=== PATIENT | female | born 1935 | race Native Hawaiian/Other Pacific Islander ===

== ENCOUNTER 2017-02-17 23:26 | Inpatient (IN) | payer MEDICARE, OTHER ==
[2017-02-17 23:27] VITALS: BMI 22.8
[2017-02-17] MEDS ORDERED: Oxycodone/Acetaminophen 5/325 mg Tab PO STA (23:59)
--- NOTE | 2017-02-18 00:09 | ED PDOC ---
Arrival/HPI - General Chief Complaint: Trauma Time Seen by Provider: 02/17/17 23:48 - History of Present Illness Narrative History of Present Illness (Text): 02/18/17 00:04 81 yo female in the ER with L. hip, knee, and hand pain after a mechanical fall at home. denies LOC. Pain worst with movement, better with rest. No change in mental status. No other complaints. Past Medical History - Provider Review Nursing Documentation Reviewed: Yes - Infectious Disease Hx of Infectious Diseases: None - Reproductive Menopause: Yes - Cardiac Hx RI: Yes - Psychiatric Hx Substance Use: No - Surgical History Hx Coronary Stent: Yes (x 2) - Anesthesia Hx Anesthesia: Yes Hx Anesthesia Reactions: No Hx Malignant Hyperthermia: No Family/Social History Family/Social History: No Known Family HX Smoking Status: Never Smoked Hx Alcohol Use: No Hx Substance Use: No Allergies/Home Meds Allergies/Adverse Reactions: Allergies No Known Allergies Allergy (Verified 02/17/17 23:42) Home Medications: Home Meds Medication Instructions Recorded Confirmed Clopidogrel [Plavix] 75 mg PO DAILY 02/17/17 02/17/17 Furosemide [Lasix] 40 mg PO DAILY 02/17/17 02/18/17 Allopurinol [Zyloprim] 100 mg PO DAILY 02/18/17 02/18/17 Aspirin [Aspirin Chewable] 81 mg PO DAILY 02/18/17 02/18/17 Colchicine [Colcrys] 0.6 mg PO DAILY 02/18/17 02/18/17 Gabapentin [Neurontin] 300 mg PO TID 02/18/17 02/18/17 Losartan [Cozaar] 100 mg PO DAILY 02/18/17 02/18/17 Potassium Chloride [Klor-Con 10 meq PO DAILY 02/18/17 02/18/17 Sprinkle] Simvastatin [Zocor] 40 mg PO DAILY 02/18/17 02/18/17 Physical Exam - Physical Exam Narrative Physical Exam (Text): - Review of Systems Constitutional: Normal. absent: Fatigue, Weight Change, Fevers Eyes: Normal ENT: denies sore throat, denies tristhmus Respiratory: Normal. absent: SOB, Cough, Sputum Cardiovascular: absent: Chest Pain, Palpitations, Syncope Gastrointestinal: Normal. absent: Abdominal Pain, Diarrhea, Nausea, Vomiting Genitourinary: Normal. absent: Dysuria, Frequency, Hematuria, vaginal bleeding Musculoskeletal: Fall. absent: Back Pain, Neck Pain Skin: Laceration. no rashes, no erythema Neurological: absent: Focal Weakness Endocrine: Normal Hemo/Lymphatic: Normal Psychiatric: No suicidal or homicidal ideations Physical exam Patient appears age appropriate in no distress, speaking full sentences without difficulty Head atraumatic. No nasal bone deformity or tenderness, no facial or jaw pain/ swelling. No neck midline tenderness, thoracic and lumbar spine with no midline tenderness. Pt moving b/l upper and right lower extremities without difficulty, 5/5 strength, with full active and passive ROM. Left ankle unremarkable. Left knee and left hip with tenderness to palpation and limited range of motion due to pain, no visible palpable deformity. Distal neurovasc fully intact. Abd soft/ nt/ng, no hematomas, no peritoneal signs. Neg. pelvic rock. - Systems Exam Head: Present: Atraumatic, Normocephalic Pupils: Present: PERRL Extroacular Muscles: Present: EOMI Conjunctiva: Present: Normal Mouth: Present: Moist Mucous Membranes Neck: Present: Normal Range of Motion. No: MIDLINE TENDERNESS, Paraspinal Tenderness Respiratory/Chest: Present: Clear to Auscultation, Good Air Exchange. No: Respiratory Distress, Accessory Muscle Use, Tachypneic Cardiovascular: Present: Regular Rate and Rhythm, Normal S1, S2, Peripheal Pulses Present. No: Murmurs Abdomen: Present: Normal Bowel Sounds. No: Tenderness, Distention, Peritoneal Signs, Rebound, Guarding Back: Present: Normal Inspection. No: Midline Tenderness, Paraspinal Tenderness Upper Extremity: Left hand with 2 cm laceration, not actively bleeding. Located at second MCP, dorsal. No: Cyanosis, Edema Lower Extremity: Present: Distal neurovascular fully intact. No: Edema Neurological: Present: GCS=15, Speech Normal, cranial nerves II through XII fully intact with no cerebellar abnormality, neurosensory fully intact. No focal neurological deficits. Skin: Present: Warm, Dry, Normal Color. No: Rashes Lymphatic: Present: OX3, NI, NC Psychiatric: Present: Alert, Oriented x 3, Normal Insight, Normal Concentration Vital Signs Reviewed: Yes Vital Signs Temp Pulse Resp BP Pulse Ox 02/18/17 03:23 79 19 123/75 99 02/18/17 02:45 97.8 F 72 20 129/45 L 98 02/18/17 01:46 98.2 F 71 18 118/59 L 98 02/17/17 23:29 98.8 F Medical Decision Making ED Course and Treatment: 02/18/17 00:09 81yo female in the ER after a mechanical fall. Patient has a hand laceration on examination, along with left hip, knee, hand pain. X-rays ordered CAT scan head pending Will give pain medication along with tetanus 02/18/17 02:21 Hip X-ray shows left intertrochanteric comminuted fracture. Ordered labs and pain medications. Other X-rays negative for acute fracture or dislocation. Will be admitted to 's service for orthopedic evaluation. 02/18/17 02:30 Informed patient and family about X-ray findings. Case discussed with who accepts patient under her service with Dr. Schmitt, and Dr. Bourne on consult. 02/18/17 02:32 CT Head results, as read by [facility]: IMPRESSION: Mild increased density in high left frontal scalp possibly mild scalp contusion. No acute intracranial abnormality. 02/18/17 02:44 EKG interpreted by me: NSR @ [address]-segment elevations, normal intervals. - RAD Interpretation Narrative RAD Interpretations (Text): EXAM: CT Head Without Intravenous Contrast. FINDINGS: Brain: Inferior margin of right temporal lobe not included in its entirety. Volume loss. No acute hemorrhage. No acute infarct. Bilateral globus pallidus calcification. Ventricles: No hydrocephalus. Bones/joints: Unremarkable. No acute fracture. Soft tissues: Mild increased density in the high left frontal scalp. Vasculature: Calcification in the wall the distal internal carotid and vertebral arteries. Sinuses: Unremarkable as visualized. No acute sinusitis. Mastoid air cells: Unremarkable as visualized. No mastoid effusion. IMPRESSION: Mild increased density in high left frontal scalp possibly mild scalp contusion. No acute intracranial abnormality. Radiology Orders: 02/17/17 23:59 HEAD W/O CONTRAST [CT] Stat HAND LEFT 3 VIEWS ROUTINE [RAD] Stat HIP MIN 2V W/ PELVIS ALCON [RAD] Stat WRIST, LEFT 3 VIEWS [RAD] Stat 02/18/17 00:18 KNEE WITH PATELLA LEFT 3 VIEW [RAD] Stat 02/18/17 02:18 CHEST PORTABLE [RAD] Stat Market Development Specialist: Radiologist - Medication Orders Current Medication Orders: Morphine Sulfate (Morphine) 4 mg IVP Q4H PRN PRN Reason: Pain, moderate (4-7) Discontinued Medications Lidocaine HCl (Lidocaine 1% (20ml)) Confirm Administered Dose 20 ml .ROUTE .STK- MED ONE Stop: 02/18/17 00:17 Last Admin: 02/18/17 00:28 Dose: 5 ML Morphine Sulfate (Morphine) 4 mg IVP STAT STA Stop: 02/18/17 02:18 Last Admin: 02/18/17 02:54 Dose: 4 MG MAR Pain Assessment Document 02/18/17 02:54 GMI (Rec: 02/18/17 02:54 GMI [id number]) Pain Reassessment Is this a pain reassessment? Yes Sleep Is patient sleeping during reassessment? No Presence of Pain Presence of Pain Yes Pain Scale Used Pain Scale Used Numeric Location Left, Right or Bilateral Left Pain Location Body Site Hip Description Description Constant Intensity of Pain at present 7 Pain Behavior Facial Grimacing IVP Administration Document 02/18/17 02:54 GMI (Rec: 02/18/17 02:54 GMI [id number]) Charges for Administration # of IVP Administrations 1 Oxycodone/Acetaminophen (Percocet 5/325 Mg Tab) 1 tab PO STAT STA Stop: 02/18/17 00:00 Last Admin: 02/18/17 00:26 Dose: 1 TAB Disposition/Present on Arrival - Present on Arrival Any Indicators Present on Arrival: No History of DVT/PE: No History of Uncontrolled Diabetes: No Urinary Catheter: No History of Decub. Ulcer: No History Surgical Site Infection Following: None - Disposition Have Diagnosis and Disposition been Completed?: Yes Diagnosis: Hip fracture Disposition: HOSPITALIZED Disposition Time: 02:30 Patient Plan: Admission Condition: FAIR
[2017-02-18] MEDS ORDERED: Lidocaine 1% Inj (20ml) ONE (00:16)
--- NOTE | 2017-02-18 01:09 | PCM.PROC ---
Procedures Attestation:: I certify that I have explained the specified Operation(s) or Procedure(s), risks, benefits and reasonable alternatives to the Patient and/or other person responsible. The opportunity was given to ask questions and all questions answered - Laceration lidocaine 1% simple, single layer clean irrigated extensively left hand 3- 0 simple, interrupted Site: hand Side (if applicable): left Size (cm): 2 Description: linear, clean Depth: simple, single layer Anesthesia used: lidocaine 1% Anesthesia technique: local infiltration Amount (mLs): 5 Pre-repair: wound explored, irrigated extensively, deep structures intact Skin layer closed with: other (Nylon) Size: 3-0 Number of sutures: 4 Technique: simple, interrupted
[2017-02-18] MEDS ORDERED: Morphine 4 mg/ml ISec IVP STA (02:17)
[2017-02-18 02:51] LABS: ADD MANUAL DIFF? NO
[2017-02-18 02:54] LABS: BASO # 0.06 K/mm3 (0.0-2.0); BASO % 0.4 % (0.0-3.0); EOS # 0.5 (0.0-0.7); EOS % 3.3 % (1.5-5.0); GRAN # 13.01 (1.4-6.5); GRAN % 80.3 % (50.0-68.0); HEMATOCRIT 36.3 % (36.0-48.0); LYMPH # 1.9 (1.2-3.4); LYMPH % 11.5 % (22.0-35.0); MEAN CELL VOLUME 90.3 fL (80.0-105.0); MEAN CORPUSCULAR HEMOGLOBIN 30.1 pg (25.0-35.0); MEAN CORPUSCULAR HGB CONC 33.3 g/dl (31.0-37.0); MEAN PLATELET VOLUME 9.9 fl (7.0-11.0); MONO # 0.7 (0.1-0.6); MONO % 4.5 % (1.0-6.0); PLATELET COUNT 248 10^3/uL (120.0-450.0); RED CELL DISTRIBUTION WIDTH 13.5 % (11.5-14.5); WHITE BLOOD COUNT 16.2 10^3/ul (4.5-11.0)
[2017-02-18 03:45] LABS: ALB/GLOB RATIO 1.3 (1.1-1.8); BILIRUBIN,TOTAL 0.5 mg/dL (0.2-1.3); CALCIUM 9.2 mg/dL (8.4-10.5); POTASSIUM 3.8 mmol/L (3.6-5.0); TOTAL PROTEIN 7.7 g/dL (5.8-8.3)
[2017-02-18 03:58] LABS: INR 0.95 (0.93-1.08); PARTIAL THROMBOPLASTIN TIME 24.7 Seconds (23.7-30.8)
--- NOTE | 2017-02-18 07:35 | CT ---
PROCEDURE: CT HEAD WITHOUT CONTRAST. HISTORY: KAHN x2 weeks COMPARISON: None available. TECHNIQUE: Axial computed tomography images were obtained through the head/brain without intravenous contrast. Radiation dose: Total exam DLP = 677.45 mGy-cm. FINDINGS: Please note that examination is limited by failure to include the most inferior aspect of the right temporal lobe. HEMORRHAGE: No intracranial hemorrhage. BRAIN: No mass effect or edema. Moderate diffuse atrophy consistent with patient age. Minimal periventricular white matter lucency consistent with microvascular white matter ischemic change. No evidence of acute infarct. VENTRICLES: Unremarkable. No hydrocephalus. CALVARIUM: Unremarkable. PARANASAL SINUSES: Unremarkable as visualized. No significant inflammatory changes. MASTOID AIR CELLS: Unremarkable as visualized. No inflammatory changes. OTHER FINDINGS: None. IMPRESSION: No intracranial mass, hemorrhage or evidence of acute infarct. Examination limited as above. Preliminary interpretation of this examination was reported by [facility] at 1:56 a.m. on 02/18/2017. There is concurrence of this report with the preliminary interpretation.
--- NOTE | 2017-02-18 08:26 | RAD ---
PROCEDURE: Left Knee Radiographs. HISTORY: Pain. COMPARISON: None. FINDINGS: BONES: No fracture. JOINTS: Tricompartmental osteoarthritis. No articular erosions. JOINT EFFUSION: None. OTHER FINDINGS: None. IMPRESSION: Tricompartmental osteoarthritis. No fracture.
--- NOTE | 2017-02-18 08:52 | RAD ---
HISTORY: cough COMPARISON: No prior. FINDINGS: LUNGS: No active pulmonary disease. PLEURA: No significant pleural effusion identified, no pneumothorax apparent. CARDIOVASCULAR: Normal. OSSEOUS STRUCTURES: No significant abnormalities. VISUALIZED UPPER ABDOMEN: Normal. OTHER FINDINGS: None. IMPRESSION: No active disease.
--- NOTE | 2017-02-18 08:54 | RAD ---
PROCEDURE: Pelvis and bilateral hips HISTORY: fall COMPARISON: Not available TECHNIQUE: AP pelvis and bilateral internal rotation hips FINDINGS: There is a mildly displaced intertrochanteric fracture of the left hip. There is no significant angulation. There is no right hip fracture. There is no dislocation. The pelvis appears intact. IMPRESSION: Intertrochanteric fracture of the left hip. Mildly displaced.
--- NOTE | 2017-02-18 08:56 | RAD ---
PROCEDURE: Left Wrist Radiographs. HISTORY: fall COMPARISON: None. FINDINGS: BONES: No fracture. Generalized osteopenia. JOINTS: Normal. No dislocation. SOFT TISSUES: Normal. OTHER FINDINGS: None. IMPRESSION: No acute fracture.
--- NOTE | 2017-02-18 08:57 | RAD ---
PROCEDURE: Left Hand Radiographs. HISTORY: fall COMPARISON: None. FINDINGS: BONES: Normal. No fracture. JOINTS: Osteoarthritis 2nd distal interphalangeal joint. No articular erosions. Remaining joint spaces and articular surfaces appear preserved. SOFT TISSUES: Normal. OTHER FINDINGS: None. IMPRESSION: No acute fracture.
[2017-02-18] MEDS ORDERED: Sodium Chloride 0.9% 1,000 ML IV SCH (10:00)
--- NOTE | 2017-02-18 12:08 | CON ---
DATE: 02/18/2017 REASON FOR CONSULTATION AND FOLLOWUP: Preop evaluation and risk stratification for hip surgery, stat us post fall requiring OR internal fixation, coronary artery disease. BRIEF CLINICAL HISTORY: An 81-year-old female with a past medical history significant for coronary a rtery disease, status post PTCA in 12/2010 when the patient admitted with unstable angina, who was hilario boo at home, suddenly fell down, sustained right hip fracture requiring OR internal fixation. Also, injury to the left wrist. Denies any prior episode of chest pain. Denies any prior episode of shor tness of breath or palpitation. PAST MEDICAL HISTORY: Significant for coronary artery disease, hypertension, hyperlipidemia, history of PTCA in 2010. Past history as mentioned, history of coronary artery disease, diabetes, hypertens ion, hyperlipidemia. PAST SURGICAL HISTORY: The patient said that history of multiple surgeries in the past including dariel arean section many years ago when she was young and recently cataract surgery. PREVIOUS CARDIAC WORKUP: The patient had a stress test prior to cataract surgery on 09/20/2014 that was essentially normal myocardial perfusion study, ejection fraction 82%, dated 09/20/2014. CURRENT MEDICATIONS: The patient is taking simvastatin, losartan 100, gabapentin, furosemide, colchi cine, Plavix, aspirin and allopurinol 100 mg daily. ALLERGIES: No known drug allergies. REVIEW OF SYSTEMS: As per HPI. PHYSICAL EXAMINATION: VITAL SIGNS: Temperature afebrile, heart rate 55, blood pressure 137/74. HEENT: PERRLA. Extraocular muscles intact. NECK: Supple. No carotid bruits. No thyromegaly. CHEST: Clear to auscultation. HEART: S1, S2 regular. ABDOMEN: Soft. EXTREMITIES: Clubbing, cyanosis negative. BLOOD WORKUP: WBC 16.2, hemoglobin 12.1, hematocrit 36.3, platelet count 248. Chemistry shows sodiu m 139, potassium 3.8, chloride 102, carbon dioxide 26, anion gap of 15, BUN 39, creatinine 1.6. IMPRESSION: Status post fall, status post hip fracture, history of coronary artery disease, status p ost percutaneous transluminal coronary angioplasty 2010, recent stress test 08/2014, less than 2 year s ago, essentially normal with preserved left ventricular function, ejection fraction 82%, hypertensi on, hyperlipidemia. RECOMMENDATION: The patient is okay to go with cardiology point of view. We will hold Plavix. No a bsolute contraindication for surgery. No evidence of ischemia, arrhythmia or congestive heart failur e. We will get echo to assess left ventricular function. The patient is cleared from cardiology poi nt of view to go as a moderate risk because of underlying comorbidity and age, but no absolute contra indication. We will notify OR and Dr. He and Dr. Schmitt. The patient is cleared from cardiology point of view. We will hold the Lasix. We will not give beta milla because patient has baseline bradycardic, but will give IV fluid to prevent acute kidney injury and I will repeat the blood workup in the morning and get echo to assess left ventricular function. We will follow with you. We will get lipid profile, TSH, hemoglobin A1c. Marquise Sahni MD cc: [id number] TT: 02/18/2017 12:08:00 Confirmation # [id number] Dictation # [id number] en
[2017-02-18] MEDS: Morphine 4 mg/ml ISec IVP PRN ×2 (16:13→23:33)
--- NOTE | 2017-02-18 16:41 | CON ---
DATE: 02/18/2017 The patient in room 576, bed 2. She came into the hospital with a fracture of left hip. I was asked to see her because other orthopedic doctor's not available. She has a displaced high intertrochante buffy fracture, left hip. She lives at home with family and has her own apartment and she slipped and fell at her house coming down the stairs. Dr. Sahni cleared her for surgery. She just had a stent re cently and is on aspirin. So what she needs for the intratrochanteric fracture is a peritroch radha to do that tomorrow about 8:30-9 a.m. in the morning. I told her the risks and benefits, got the conse nt for blood transfusion and told her that the only way she can get better and walk again is to get t his fixed with the risk of surgery which was infection and reaction to anesthesia and possible blood clots bloods. After surgery the pain will be much better and we will get her out of bed and can go t o subacute rehab facility, hopefully [facility] and I can follow her there. FINAL DIAGNOSIS: Displaced intertrochanteric fracture, left hip 81-year-old female who lives basical ly alone. Vin Suárez DO cc: [id number] TT: 02/18/2017 16:40:34 Confirmation # [id number] Dictation # [id number] ab
--- NOTE | 2017-02-18 18:37 | CARD ---
APPROVED REPORT EKG Measurement Heart [id number] <Conclusion> Normal sinus rhythm Possible Left atrial enlargement Borderline ECG
--- NOTE | 2017-02-18 19:23 | HP ---
CHIEF COMPLAINT: Fall, leg pain. HISTORY OF PRESENT ILLNESS: The patient is my private patient with history of hypertension, hypercho lesterolemia, came in [facility] Emergency Room with fall and left hip pain. According to marty ent, he just woke up in the middle of the night to go to the bathroom, then she had a fall with that. She has pain in the left hip, knee and hand after a mechanical fall at home. Denies loss of consci ousness or pain worse with movement. Better with rest. No change in mental status. No fever, no ch ills. No nausea, vomiting, or diarrhea. No hematuria or hematochezia. No headache, no dizziness. The patient is seen by me in the room, daughter was standing on the bedside. PAST MEDICAL HISTORY: History of [place], coronary artery stent, hypertension, and hypercholesterolemia. FAMILY HISTORY: Father and mother noncontributory. HABITS: No smoking, no drugs, no ethanol. ALLERGIES: No known drug allergies. MEDICATIONS: Plavix, Lasix, allopurinol, aspirin, Colcrys, gabapentin, Cozaar, potassium and simvast atin. REVIEW OF SYSTEMS: The patient is seen and examined on the bedside in the room with daughter standin g on the bedside, complaining about pain in the left hip. Left hand has dressing on that. No fever, no chills. No headache, no dizziness, no shortness of breath. PHYSICAL EXAMINATION: VITAL SIGNS: Temperature 98.4, pulse 55, blood pressure 137/74, respiratory rate 20. HEENT: Head normocephalic, atraumatic. Eyes, PERRLA. Extraocular muscles intact. Conjunctivae pink . Eyelids unremarkable. Nose patent. Mucous membranes moist. NECK: Supple. No carotid bruit, JVD or thyromegaly. CHEST: Bilaterally symmetrical. HEART: S1, S2 positive. LUNGS: Clear to auscultation. ABDOMEN: Soft. Bowel sounds present. No organomegaly. EXTREMITIES: Left hand has a dressing, left hip movement is painful. No cyanosis. NEUROLOGIC: Awake and alert. Oriented x 3. LABORATORY DATA: White blood cells are 16.2, hemoglobin 12.1, hematocrit 36.3, and platelets 248. S odium 138, potassium 3.8, BUN 39, creatinine 1.6, and glucose 136. ASSESSMENT AND PLAN: This patient is an 81-year-old female, has leukocytosis, renal insufficiency, h yperglycemia, came with a mechanical fall, seen by Dr. Sahni for cardiological clearance, history of c oronary artery disease, hypertension, hypercholesterolemia, history of percutaneous transluminal eric nary angioplasty in 2010, past history of coronary artery disease. According to patient, she had mul tiple surgeries in the past including sections, had cataract surgery, status post mechanical fall, has hip fracture. According to vp customer development, the patient is okay to go for surgery. He held t he Plavix. No absolute contraindication for surgery. No evidence of ischemia, arrhythmia or congest rosalba heart failure, but he will do echocardiography. Because of renal insufficiency, Dr. Sahni held th e Lasix also. Held beta milla because of baseline bradycardia. Getting IV fluids. The patient is seen by Dr. Suárez, orthopedic. The patient had displaced her intratrochanteric fracture. Dis cussion done with the daughter. Continue present treatment. Gastrointestinal and deep venous thromb osis prophylaxis. Repeat labs. We will follow up. Dennise He MD cc: [id number] TT: 02/18/2017 19:22:26 anita
[2017-02-18 23:36] LABS: URINE BILIRUBIN NEGATIVE (NEGATIVE); URINE BLOOD TRACE-LYSED (NEGATIVE); URINE GLUCOSE (UA) NEGATIVE (NEGATIVE); URINE KETONE NEGATIVE (NEGATIVE); URINE LEUKOCYTE ESTERASE TRACE Leu/uL (NEGATIVE); URINE PROTEIN NEGATIVE mg/dL (<30 mg/dL); URINE UROBILINOGEN 0.2 E.U./dL (<1 E.U./dL)
[2017-02-18 23:38] LABS: URINE APPEARANCE CLEAR (CLEAR); URINE COLOR YELLOW (YELLOW)
[2017-02-18 23:50] LABS: URINE BACTERIA SMALL (NEG); URINE EPITHELIAL CELLS 0 - 2 /hpf (0-5)
[2017-02-19] MEDS: Morphine 4 mg/ml ISec IVP PRN (05:13)
[2017-02-19] MEDS: Pantoprazole 40 mg EC Tab PO SCH (07:12)
[2017-02-19] MEDS ORDERED: Propofol 10 mg/ml Inj (20 ML) ONE (08:51)
[2017-02-19] MEDS ORDERED: Etomidate 20 mg/10ml Inj IV ONE (08:51)
[2017-02-19] MEDS ORDERED: Succinylcholine 200 mg/10 ml Inj IV ONE (08:52)
[2017-02-19 08:53] LABS: ADD MANUAL DIFF? NO
[2017-02-19 08:56] LABS: BASO # 0.02 K/mm3 (0.0-2.0); BASO % 0.2 % (0.0-3.0); EOS # 0.1 (0.0-0.7); EOS % 1.1 % (1.5-5.0); GRAN # 9.19 (1.4-6.5); GRAN % 77.7 % (50.0-68.0); HEMATOCRIT 36.1 % (36.0-48.0); LYMPH # 1.5 (1.2-3.4); MEAN CELL VOLUME 89.8 fL (80.0-105.0); MEAN CORPUSCULAR HEMOGLOBIN 29.6 pg (25.0-35.0); MEAN PLATELET VOLUME 9.8 fl (7.0-11.0); PLATELET COUNT 181 10^3/uL (120.0-450.0); RED CELL DISTRIBUTION WIDTH 13.8 % (11.5-14.5); WHITE BLOOD COUNT 11.8 10^3/ul (4.5-11.0)
[2017-02-19] MEDS: Non Formulary Medication (Potassium Chloride [Klor-Con Sprinkle] 10 MEQ) PO SCH (09:00)
[2017-02-19] MEDS ORDERED: Phenylephrine 10 mg/ml Inj ONE (09:04)
[2017-02-19] MEDS ORDERED: ePHEDrine 50 mg/ml Inj ONE (09:04)
[2017-02-19 09:10] LABS: ALB/GLOB RATIO 1.2 (1.1-1.8); MAGNESIUM 2.5 mg/dL (1.7-2.2); TOTAL PROTEIN 7.6 g/dL (5.8-8.3)
[2017-02-19] MEDS ORDERED: Bupivacaine 0.5% Inj(30mL) ONE (09:40)
[2017-02-19] MEDS ORDERED: Non Formulary Medication (Simvastatin [Zocor] 40 MG) PO SCH (10:00)
[2017-02-19] MEDS ORDERED: HYDROmorphone 0.5 mg/0.5 ml ISec IVP PRN (11:01)
[2017-02-19] MEDS ORDERED: Sodium Chloride 0.9% 1,000 ML IV SCH (11:15)
--- NOTE | 2017-02-19 12:41 | OP ---
PROCEDURE DATE: 02/19/2017 PREOPERATIVE DIAGNOSIS: Displaced intertrochanteric fracture, left hip. POSTOPERATIVE DIAGNOSIS: Displaced intertrochanteric fracture, left hip. ANESTHESIA: General endotracheal tube. PROCEDURE: Open reduction internal fixation with [employer] intramedullary peritroch nail from [employer] using a 125 degree angle nail, 11 mm wide, 180 mm long with a 95 mm long lag screw and a 32 mm distal locking screw. DESCRIPTION OF PROCEDURE: The patient was taken to the OR. Left hip prepped and draped in sterile fashion on the fracture table with gentle traction and internal rotation. Once the leg was prepped and draped, x-rays showed good improved position of the fracture. We made an opening into the fracture, 2 cm long and 4 cm above the greater trochanter. 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 After the guidewire was down, the proximal reaming done to 17 mm, we had to ream the shaft to 12.5 mm to allow us to put in an 11 mm wide radha. X-ray showed good position and then we locked the radha proximally with a second incision just below it with the help of the jig to get us to ream the femoral head and neck and put in a 95 mm long lag screw into the head after it was reamed out. Then impacted the fracture and took the traction off and locked distally with a 32 mm long locking screw in a dynamic mode to allow the fracture to compress further. The wound was irrigated with normal saline and closed in layers with 0 Vicryl to fascia layer, 2-0 Vicryl for subcutaneous tissue, skin with 2-0 nylon and sent to recovery room in good condition. Vin Suárez DO cc: [id number] TT: 02/19/2017 12:40:48 anita MURO
[2017-02-19 14:12] LABS: ADD MANUAL DIFF? NO
[2017-02-19 14:19] LABS: BASO # 0.04 K/mm3 (0.0-2.0); BASO % 0.2 % (0.0-3.0); EOS % 0.2 % (1.5-5.0); GRAN # 16.14 (1.4-6.5); GRAN % 86.9 % (50.0-68.0); HEMATOCRIT 27.6 % (36.0-48.0); LYMPH # 1.1 (1.2-3.4); MEAN CELL VOLUME 90.2 fL (80.0-105.0); MEAN CORPUSCULAR HEMOGLOBIN 29.7 pg (25.0-35.0); MEAN PLATELET VOLUME 9.7 fl (7.0-11.0); MONO # 1.2 (0.1-0.6); MONO % 6.7 % (1.0-6.0); PLATELET COUNT 183 10^3/uL (120.0-450.0); RED CELL DISTRIBUTION WIDTH 13.9 % (11.5-14.5); WHITE BLOOD COUNT 18.6 10^3/ul (4.5-11.0)
[2017-02-19 14:25] LABS: POTASSIUM 4.1 mmol/L (3.6-5.0)
--- NOTE | 2017-02-19 15:29 | PN ---
DATE: 02/19/2017 SUBJECTIVE: The patient is lying in bed in no acute distress, status post open reduction and interna l fixation fracture, left hip. There is no chest pain, no shortness of breath. OBJECTIVE: VITAL SIGNS: Blood pressure 159/65, pulse 92, temperature 99, respiratory rate 20. LUNGS: Clear. HEART: Regular rate and rhythm. ABDOMEN: Soft, nontender, bowel sounds are normoactive. EXTREMITIES: Left hip dressing is intact. NEUROLOGIC: The patient is awake and oriented x 3 without focal sensory or motor deficits. SKIN: Warm and dry. LABORATORY DATA: WBC is 18.6, hemoglobin 9.1, hematocrit 27.6. Sodium 140, potassium 4.1, chloride 105, CO2 of 22, BUN 22, creatinine 1.4, glucose 166. IMPRESSION: 1. Status post open reduction and internal fixation fracture, left hip. 2. Hyperglycemia. 3. Mild chronic renal insufficiency. 4. History of coronary artery disease. 5. Hypertension. 6. Hypercholesterolemia. PLAN: Continue postoperative care. Orthopedic follow up with Dr. Suárez. Cardiology follow u p with Dr. Sahni. Monitor hemoglobin and hematocrit. Sincere Gray JD, MD cc: [id number] TT: 02/19/2017 15:28:59 Confirmation # [id number] Dictation # [id number] ravi
[2017-02-19] MEDS: Oxycodone/Acetaminophen 5/325 mg Tab PO PRN (16:03)
--- NOTE | 2017-02-19 17:33 | PN ---
DATE: 02/19/2017 REFERRING PHYSICIAN: Dr. He. SUBJECTIVE: She is lying in the bed, status post left hip surgery. Has mild postop and is unremarka ble. No headache, no rhinitis, no nausea, no vomiting. Mild left hip pain. No dysuria. OBJECTIVE: GENERAL: No acute distress. VITAL SIGNS: Temperature is 98.5, heart rate is 105, respiratory rate is 20, blood pressure 122/54, pulse ox 96% on room air. HEENT: Moist mucous membranes. Crowded airway. NECK: Supple. No JVD. LUNGS: Has a fair airflow with rhonchi. HEART: S1, S2. ABDOMEN: Soft, nontender. No organomegaly. EXTREMITIES: There is some tenderness in the left hip. Lower legs no edema. NEUROLOGIC: Awake, alert, follows simple command. MEDICATIONS: She is on Ancef 1 g IV q. 8 hours, aspirin 81 mg daily, Colchicine 0.6 mg daily, Cozaar 100 mg daily, Dilaudid 0.5 mg subQ q. 4 hours p.r.n., Lasix 40 mg daily, Lipitor 20 mg daily, morphi ne 4 mg IV q. 4 hours p.r.n., Neurontin 300 mg 3 times a day, Percocet 10/325 one tab q. 4 hours, pot assium supplement, Protonix 40 mg daily, Tylenol p.r.n., allopurinol 100 mg daily. LABORATORY DATA: Shows hemoglobin 9.1, hematocrit 27.6, WBC 18.6, platelet is 183. Sodium 140, pota ssium 4.1, chloride 101, bicarbonate 22, BUN 22, creatinine 1.4, glucose 166, calcium is 8.0. IMPRESSION AND PLAN: Status post fall with left hip fracture requiring repair, may have a component of sleep apnea syndrome, coronary artery disease, hypertension, hyperlipidemia. I spoke to family __ ___. Continue pain management. Keep head elevated at 45 degree. Careful with sedation. We will ad d MiraLAX 1 pack twice a day. We will start chemical DVT prophylaxis and clear daily. For now , continue SCDs. Followup labs in the morning. Thank you and we will follow with you. Marquise Bourne MD cc: [id number] TT: 02/19/2017 17:32:30 Confirmation # [id number] Dictation # [id number] ln
[2017-02-20] MEDS: Pantoprazole 40 mg EC Tab PO SCH (06:17)
[2017-02-20 08:12] LABS: ALB/GLOB RATIO 1.1 (1.1-1.8); BILIRUBIN,TOTAL 0.5 mg/dL (0.2-1.3); CALCIUM 7.9 mg/dL (8.4-10.5); POTASSIUM 3.8 mmol/L (3.6-5.0)
[2017-02-20] MEDS: POLYETHYLENE GLYCOL 3350 17 GM/Dose PACKET PO SCH ×2 (09:09→17:42)
--- NOTE | 2017-02-20 09:11 | PN ---
DATE: 02/20/2017 First day postop for the patient. An 81-year-old female in room 576, bed 2. The patient has no undue complaint of pain, except for some mild pain on the contralateral side of her low back. I cleaned her right hand laceration that was sutured in the ER. It looks clean, but left the dressing on and her left hip wound is dry. We will get her up out of bed. Her hemoglobin is 9.1 and stable. She came in with a 12 gram hemoglobin. Hopefully, it will stabilize without any need for a blood transfusion, but we will follow the H and H for the next 2 days and try to bring her to a facility where she can be followed in subacute rehab. Vin Suárez DO cc: [id number] TT: 02/20/2017 09:10:51 Confirmation # [id number] Dictation # [id number] en MTDD
[2017-02-20] MEDS: Non Formulary Medication (Potassium Chloride [Klor-Con Sprinkle] 10 MEQ) PO SCH (09:13)
[2017-02-20] MEDS: Oxycodone/Acetaminophen 5/325 mg Tab PO PRN ×2 (10:22→17:46)
[2017-02-20 11:12] LABS: ADD MANUAL DIFF? NO
[2017-02-20 11:18] LABS: BASO # 0.04 K/mm3 (0.0-2.0); BASO % 0.3 % (0.0-3.0); EOS # 0.3 (0.0-0.7); EOS % 1.7 % (1.5-5.0); GRAN # 12.56 (1.4-6.5); GRAN % 80.7 % (50.0-68.0); LYMPH # 1.5 (1.2-3.4); LYMPH % 9.6 % (22.0-35.0); MEAN CELL VOLUME 89.5 fL (80.0-105.0); MEAN CORPUSCULAR HGB CONC 33.5 g/dl (31.0-37.0); MEAN PLATELET VOLUME 10.1 fl (7.0-11.0); MONO # 1.2 (0.1-0.6); MONO % 7.7 % (1.0-6.0); PLATELET COUNT 164 10^3/uL (120.0-450.0); WHITE BLOOD COUNT 15.6 10^3/ul (4.5-11.0)
[2017-02-20 11:24] LABS: CALCIUM 8.2 mg/dL (8.4-10.5); POTASSIUM 3.8 mmol/L (3.6-5.0)
--- NOTE | 2017-02-20 14:33 | PN ---
DATE: 02/20/[address] Gray covering for Dr. Dennise He. SUBJECTIVE: The patient is lying in bed, in no acute distress. She denies chest pain or shortness o f breath. OBJECTIVE: VITAL SIGNS: Blood pressure 140/60, temperature 99.5, respiratory rate 18, pulse 109. LUNGS: Clear. HEART: Regular rate and rhythm. Slightly tachycardic. ABDOMEN: Soft, nontender, bowel sounds are normoactive. EXTREMITIES: Left hip dressing is intact. NEUROLOGIC: The patient is awake and oriented x 3 without focal, sensory or motor deficits. SKIN: Warm and dry. LABORATORY DATA: WBCs 15.6, hemoglobin 7.7, hematocrit 23.0. Sodium 136, potassium 3.8, chloride 10 3, CO2 24, BUN 24, creatinine 1.3, glucose 139. IMPRESSION: 1. Status post open reduction internal fixation, fracture left hip. 2. Hyperglycemia. 3. Mild chronic renal insufficiency. 4. History of coronary artery disease. 5. Hypertension. 6. Hypercholesterolemia. 7. Postoperative anemia. PLAN: The patient is for transfusion of 2 units packed red blood cells. Monitor hemoglobin and diogenes tocrit. Continue postoperative followup care by orthopedics, Dr. Suárez, and cardiology follow up with Dr. Sahni. Dr. He to resume coverage of patient in a.m. Sincere L Isaac RODRÍGUEZ MD cc: [id number] TT: 02/20/2017 14:32:55 Confirmation # [id number] Dictation # [id number] en
--- NOTE | 2017-02-20 18:05 | CP.PCM.PN ---
Subjective - Date & Time of Evaluation Date of Evaluation: 02/20/17 Time of Evaluation: 15:20 - Subjective Subjective: pt needs angiocath insertion . Objective - Vital Signs/Intake and Output Vital Signs (last 24 hours): Temp Pulse Resp BP Pulse Ox 98.7 F 100 H 20 143/46 L 96 02/20/17 16:58 02/20/17 16:58 02/20/17 16:58 02/20/17 16:58 02/20/17 16:41 Intake and Output: 02/20/17 02/20/17 06:59 18:59 Intake Total 600 540 Output Total 700 600 Balance -100 -60 - Medications Medications: Current Medications Acetaminophen (Tylenol 325mg Tab) 650 mg PO Q6H PRN PRN Reason: Pain, Mild (1-3) Last Admin: 02/20/17 09:09 Dose: 650 mg Allopurinol (Zyloprim) 100 mg PO DAILY [facility] Last Admin: 02/20/17 09:08 Dose: 100 mg Aspirin (Aspirin Chewable) 81 mg PO DAILY [facility] Last Admin: 02/20/17 09:08 Dose: 81 mg Atorvastatin Calcium (Lipitor) 20 mg PO DIN [facility] Last Admin: 02/20/17 17:41 Dose: 20 mg Colchicine (Colocrys) 0.6 mg PO DAILY [facility] Last Admin: 02/20/17 09:08 Dose: 0.6 mg Furosemide (Lasix) 40 mg PO DAILY [facility] Last Admin: 02/20/17 09:08 Dose: 40 mg Gabapentin (Neurontin) 300 mg PO TID [facility] PRN Reason: Protocol Last Admin: 02/20/17 17:41 Dose: 300 mg Hydromorphone HCl (Dilaudid) 0.5 mg SC Q4H PRN PRN Reason: Pain, severe (8-10) Losartan Potassium (Cozaar) 100 mg PO DAILY [facility] Last Admin: 02/20/17 09:08 Dose: 100 mg Morphine Sulfate (Morphine) 4 mg IVP Q4H PRN PRN Reason: Pain, moderate (4-7) Last Admin: 02/19/17 05:13 Dose: 4 mg Non-Formulary Medication (Potassium Chloride [Klor-Con Sprinkle]) 10 meq PO DAILY [facility] Last Admin: 02/20/17 09:13 Dose: Not Given Oxycodone/Acetaminophen (Percocet 5/325 Mg Tab) 1 tab PO Q4H PRN PRN Reason: Pain, moderate (4-7) Stop: 02/22/17 11:08 Last Admin: 02/20/17 17:46 Dose: 1 tab Pantoprazole Sodium (Protonix Ec Tab) 40 mg PO 0630 [facility] Last Admin: 02/20/17 06:17 Dose: 40 mg Polyethylene Glycol (Miralax) 17 gm PO BID JUAN Last Admin: 02/20/17 17:42 Dose: 17 gm - Labs Labs: 02/20/17 11:11 02/20/17 11:11 PT 10.3 Seconds (9.9-11.8) 02/18/17 03:00 INR 0.95 (0.93-1.08) 02/18/17 03:00 APTT 24.7 Seconds (23.7-30.8) 02/18/17 03:00 Assessment and Plan - Assessment and Plan (Free Text) Assessment: 22 guage angiocath inserted in rt wrist area.
--- NOTE | 2017-02-20 21:38 | PN ---
DATE: 02/20/2017 REFERRING PHYSICIAN: Dr. He. SUBJECTIVE: The patient is out of bed to chair. The night was unremarkable. Being typed and cross matched for possible blood transfusion; had a drop in her H and H. No obvious bleed is noted. Wound site looks okay. No headache, no rhinitis, no nausea, no vomiting, no diarrhea. OBJECTIVE: GENERAL: In no acute distress. VITAL SIGNS: Temp is 98, heart rate is , respiratory rate is 20, blood pressure 146/47, pulse o x 96% on room air. HEENT: Moist mucous membranes. Crowded airway. Mallampati score is 4. NECK: Supple. No JVD. LUNGS: Has a fair airflow with a few rhonchi. HEART: S1, S2. ABDOMEN: Soft, nontender. No organomegaly. EXTREMITIES: Left hip has some tenderness. No ecchymotic area or swelling. NEUROLOGIC: Awake, alert, follows simple commands. MEDICATIONS: She is on aspirin 81 mg daily, colchicine 0.6 mg daily, Cozaar 100 mg daily, Dilaudid 0 .5 mg subQ q.4 hours p.r.n., Lasix 40 mg daily, Lipitor 20 mg daily, MiraLax 17 grams twice a day, mo rphine 4 mg q.4 hours p.r.n., Neurontin 300 mg 3 times a day, Percocet 5/325 one tab q.4 hours p.r.n ., potassium 10 mEq daily, Protonix 40 mg daily, Tylenol p.r.n., allopurinol 100 mg daily. LABORATORY DATA: Shows hemoglobin 7.7, hematocrit 23.0, WBC 15.6, and platelet is 164. Sodium 136, potassium 3.8, chloride 103, bicarbonate 24, BUN 24, creatinine 1.3, glucose 139, calcium is 8.2. IMPRESSION AND PLAN: Status post fall with left hip fracture requiring hip replacement, may have a c omponent of sleep apnea syndrome, coronary artery disease, hypertension, hyperlipidemia, dropped almo st hemoglobin since surgery, being typed and cross matched for transfusion. Will send an anemi a workup including ferritin, iron studies, B12 and folate. Follow up H and H in the morning. Gastri c prophylaxis. SCDs to lower extremities. Fall precaution. Thank you and will follow with you. Marquise Bourne MD cc: [id number] TT: 02/20/2017 21:38:11 Confirmation # [id number] Dictation # [id number] dn
[2017-02-20] MEDS: HYDROmorphone 0.5 mg/0.5 ml ISec SC PRN (23:31)
[2017-02-21] MEDS: HYDROmorphone 0.5 mg/0.5 ml ISec SC PRN (04:15)
[2017-02-21] MEDS: Pantoprazole 40 mg EC Tab PO SCH (06:03)
[2017-02-21 07:56] LABS: ADD MANUAL DIFF? NO
[2017-02-21 07:58] LABS: BASO # 0.04 K/mm3 (0.0-2.0); BASO % 0.3 % (0.0-3.0); EOS # 0.7 (0.0-0.7); EOS % 4.5 % (1.5-5.0); GRAN # 11.93 (1.4-6.5); GRAN % 75.2 % (50.0-68.0); HEMATOCRIT 32.1 % (36.0-48.0); LYMPH # 1.9 (1.2-3.4); MEAN CELL VOLUME 84.3 fL (80.0-105.0); MEAN CORPUSCULAR HEMOGLOBIN 29.4 pg (25.0-35.0); MEAN CORPUSCULAR HGB CONC 34.9 g/dl (31.0-37.0); MEAN PLATELET VOLUME 10.1 fl (7.0-11.0); MONO # 1.3 (0.1-0.6); PLATELET COUNT 129 10^3/uL (120.0-450.0); RED CELL DISTRIBUTION WIDTH 15.1 % (11.5-14.5); WHITE BLOOD COUNT 15.9 10^3/ul (4.5-11.0)
--- NOTE | 2017-02-21 08:14 | CON ---
DATE: 02/18/2017 REFERRING PHYSICIAN: Dr. He. REASON FOR CONSULT: Status post fall with a left hip fracture, awaiting for surgery, has loud snorin g at nighttime, daytime sleepy and tired. HISTORY OF PRESENT ILLNESS: This is an 81-year-old female with past medical history significant for coronary artery disease with PTCA, hyperlipidemia, diabetes, hypertension, apparently at home missed a step and fell with left hip fracture seen by cardiology, also seen by orthopedic. Admitted to have loud snoring at nighttime, daytime sleepy and tired. No history of lung disease in the past. No sh ortness of breath in the past. No cough, no sputum production, no nausea, no vomiting, and no diarrh ea. No dysuria. PAST MEDICAL HISTORY: Again, significant for coronary artery disease, history of PTCA, hypertension, diabetes, and hyperlipidemia. ALLERGIES: None known. SOCIAL HISTORY: No history of smoking or alcohol use. FAMILY HISTORY: No significant cardiopulmonary disease reported. MEDICATIONS: She is on morphine 4 mg q. 4 hours and also IV fluid normal saline 75 mL per hour. HOME MEDICATIONS: She has been on allopurinol, aspirin, Plavix, colchicine, Lasix, gabapentin, losar larry, potassium supplements, and simvastatin. Marquise Bourne MD cc: [id number] TT: 02/18/2017 18:08:59 Confirmation # [id number] Dictation # [id number] 02/21/2017 07:13:21
--- NOTE | 2017-02-21 08:28 | PN ---
DATE: 02/21/2017 Updated report 2 days postop for the patient in room 576, bed 2. She had 2 units of packed cells for a 7.7 hemoglobin yesterday and now it is 11.2 hemoglobin and 32 hematocrit. The pain is much less. We will get her up out of bed and begin ambulation. Hopefully, she can go to subacute rehab for amb ulation with a walker, weightbearing to tolerance. The wound is dry and I will follow her while she is here and then hopefully follow her at the subacute rehabilitation facility too if it is in [facility]. Vin Suárez DO cc: [id number] TT: 02/21/2017 08:28:04 Confirmation # [id number] Dictation # [id number] en
[2017-02-21 08:39] LABS: ALB/GLOB RATIO 1.1 (1.1-1.8); BILIRUBIN,TOTAL 1.1 mg/dL (0.2-1.3); TOTAL PROTEIN 6.4 g/dL (5.8-8.3)
[2017-02-21 09:10] LABS: IRON 17 ug/dL (45-180)
[2017-02-21] MEDS: Morphine 4 mg/ml ISec IVP PRN ×2 (09:36→18:31)
[2017-02-21] MEDS: POLYETHYLENE GLYCOL 3350 17 GM/Dose PACKET PO SCH ×2 (10:42→18:23)
[2017-02-21] MEDS: Non Formulary Medication (Potassium Chloride [Klor-Con Sprinkle] 10 MEQ) PO SCH (10:54)
[2017-02-21 13:07] LABS: FOLATE 9.6 ng/mL
--- NOTE | 2017-02-21 15:05 | CARD ---
APPROVED REPORT EXAM: Two-dimensional and M-mode echocardiogram with Doppler and color Doppler. INDICATION Pre-Op 2D DIMENSIONS Left Atrium (2D)4.1 (1.6-4.0cm)IVSd1.1 (0.7-1.1cm) LVDd3.1 (3.9-5.9cm)PWd1.4 (0.7-1.1cm) LVDs2.3 (2.5-4.0cm)FS (%) 27.6 % LVEF (%)55.1 (>50%) M-Mode DIMENSIONS Aortic Root3.00 (2.2-3.7cm)Aortic Cusp Exc.1.40 (1.5-2.0cm) Aortic Valve AoV Peak Zvyhglay427.0cm/Viktoria Peak GR.20mmHgLVOT Peak Yweneywq701.0cm/s LVOT VTI21.30cm Mitral Valve MV E Rssrnyxp32.7cm/sMV A Ulmpvzoq428.0cm/sE/A ratio0.5 TDI Lateral E' Peak V8.29cm/sMedial E' Peak V5.65cm/sE/Lateral E'7.4 E/Medial E'10.9 Pulmonary Valve PV Peak Mkeihjgt863.0cm/sPV Peak Grad.7mmHg Tricuspid Valve TR Peak Wpvqobki824uv/sRAP [id number] Peak Gr.91mmHg [id number] LEFT VENTRICLE The left ventricle is normal size. There is mild concentric left ventricular hypertrophy. The left ventricular function is normal.EF-55% There is normal LV segmental wall motion. Transmitral Doppler flow pattern is Grade III-reversible restrictive diastolic dysfunction. No left ventricle thrombus noted on this study. There is no ventricular septal defect visualized. There is no left ventricular aneurysm. There is no mass noted in the left ventricle. RIGHT VENTRICLE The right ventricle is mildly dilated. There is normal right ventricular wall thickness. Systolic function is mildly to moderately reduced. ATRIA The left atrium is moderately dilated. The right atrium is mildly dilated. The interatrial septum is intact with no evidence for an atrial septal defect. AORTIC VALVE The aortic valve is calcified and displays decreased opening. There is trace to mild aortic regurgitation. Artic sclerosis VS Mild There is no aortic valvular vegetation. MITRAL VALVE The mitral valve is thickened but opens well. Mitral annular calcification is moderate. Mitral regurgitation is mild. There is no mitral valve stenosis. There is no evidence of mitral valve prolapse. TRICUSPID VALVE The tricuspid valve leaflets are thickened , but open well. There is severe tricuspid regurgitation.RVSP-101 mmof Hg. There is severe pulmonary hypertension. There is no tricuspid valve stenosis. There is no tricuspid valve prolapse or vegetation. PULMONIC VALVE The pulmonary valve is normal in structure. There is trace pulmonic valvular regurgitation. There is no pulmonic valvular stenosis. GREAT VESSELS The aortic root is normal in size. The ascending aorta is normal in size. The pulmonary artery is normal. The IVC is normal in size and collapses >50% with inspiration. PERICARDIAL EFFUSION There is no pleural effusion. There is no pericardial effusion. <Conclusion> The left ventricle is normal size. There is mild concentric left ventricular hypertrophy. The left ventricular function is normal.EF-55% There is trace to mild aortic regurgitation. Mitral regurgitation is mild. There is severe tricuspid regurgitation.RVSP-101 mmof Hg. There is severe pulmonary hypertension. There is trace pulmonic valvular regurgitation. The IVC is normal in size and collapses >50% with inspiration. There is no pericardial effusion.
--- NOTE | 2017-02-21 15:14 | RAD ---
PROCEDURE: Fluoroscopy up to 1 hour HISTORY: O.R.I.F. LEFT HIP COMPARISON: TECHNIQUE: Fluoroscopy was provided in the operating room. 37 seconds of fluoroscopy time were used. Four images were submitted FINDINGS: There is a compression screw and intramedullary radha in the left hip. There is anatomic alignment IMPRESSION: As above
--- NOTE | 2017-02-21 17:05 | PN ---
DATE: 02/21/2017 REASON FOR CONSULTATION: Preop evaluation and postop followup for hip fracture status post OR academic intern al fixation. BRIEF CLINICAL HISTORY: This is an 81-year-old female with past medical history significant for eric nary artery disease, status post PTCA in 2010. The patient was admitted with angina. This time, mago martin came in after a fall, status post fracture of left hip, status post OR internal fixation. Denie s any chest pain, shortness of breath. Getting rehab. Family is at the bedside. PHYSICAL EXAMINATION: As follows: VITAL SIGNS: Temperature 100.0 oral, heart rate 97, blood pressure 137/61. HEENT: PERRLA, intact. NECK: Supple. No carotid bruits. No thyromegaly. CHEST: Clear to auscultation. HEART: S1, S2 regular. ABDOMEN: Soft. EXTREMITIES: Clubbing and cyanosis negative. BLOOD WORKUP: As follows: WBC 15.9, hemoglobin 11.9, hematocrit 32.1, platelet count 129. Chemistr y shows sodium 130, potassium 4, chloride 103, carbon dioxide 27, anion gap of 12, BUN 24, creatinine 1.1. IMPRESSION: ____ fall status post fractured hip, status post open reduction internal fixation, coron gail artery disease, hypertension, hyperlipidemia. The patient had echocardiography done yesterday th at showed ejection fraction 55%, mild mitral regurgitation, severe tricuspid regurgitation, right al tricular systolic pressure of 101, severe pulmonary hypertension, trace pulmonary vascular insufficie ncy, wafxb-gb-dkju mitral regurgitation, athos-nw-dazo aortic regurgitation, mild tricuspid regurgita tion. The patient has severe pulmonary hypertension. The patient had a prior echo a couple of years ago and a stress test last year that shows normal. ____ see how the patient ambulates. Can conside r sildenafil Revatio b.i.d. if the blood pressure ____ for pulmonary hypertension. We will follow th you. Thank you, Dr. He, for providing the opportunity in taking care of the patient. Marquise Sahni MD cc: [id number] TT: 02/21/2017 17:04:24 Confirmation # [id number] Dictation # [id number] sn
[2017-02-21] MEDS ORDERED: Iodixanol 320 MG/ML 100 ML BOTTLE IV ONE (17:54)
--- NOTE | 2017-02-21 17:55 | PN ---
DATE: 02/21/2017 ADDENDUM To Progress Note dictated this morning. REASON FOR ADDENDUM: Severe pulmonary hypertension. Echo was done that shows PA pressure is 101, need to rule out acute pulmonary embolism. We will send the patient for chest CT with high resolution CT. Since the patient dropped yesterday hemoglobin and gave 2 units of blood, so we will hold the Coumadin now unless there is a definite indication. If it is indicated will start Lovenox, but we will get first CT chest, stat, to rule out PE. If it is negative, then we can start Revatio. We will follow with you. Thank you, Dr. He, for providing the opportunity in taking care of the patient. Marquise Sahni MD cc: 305 TT: 02/21/2017 17:54:39 Confirmation # [id number] Dictation # [id number] filemon MURO
--- NOTE | 2017-02-21 21:12 | CT ---
EXAM: CT Angiography Chest With Intravenous Contrast. CLINICAL HISTORY: 81 years old, female; Abnormal findings; Other: R/O pulmonary embolism, head fracture. TECHNIQUE: Axial computed tomographic angiography images of the chest with intravenous contrast using pulmonary embolism protocol. This CT exam was performed using one or more of the following dose reduction techniques: automated exposure control, adjustment of the mA and/or kV according to patient size, and/or use of iterative reconstruction technique. MIP reconstructed images were created and reviewed. Coronal and sagittal reformatted images were created and reviewed. CONTRAST: 100 mL of VISIPAQUE 320 administered intravenously. EXAM DATE/TIME: 02/21/2017 4:20 PM COMPARISON: Prior chest radiographs of 02/18/2017 FINDINGS: PULMONARY ARTERIES: Contrast opacification of the pulmonary arteries is adequate, and there are no filling defects seen to suggest pulmonary embolism. AORTA: No evidence of aortic dissection. LUNGS: Small area of consolidation is seen in the lingula, most likely representing scarring or atelectasis. There are also small areas of atelectasis or scarring in the right lung. No evidence of significant focal consolidation/infiltrate in the lungs. No evidence of diffuse pulmonary vascular congestion. PLEURAL SPACE: No pneumothorax or pleural effusions seen. HEART: Coronary artery calcification. Heart appears mild enlarged. No evidence of significant pericardial effusion. MEDIASTINUM: No evidence of pneumomediastinum. THYROID: 1.3 cm left thyroid nodule incidentally noted. Recommend thyroid ultrasound or scintigraphy for further evaluation, given the size of this nodule, on a nonemergent basis, unless otherwise clinically indicated. BONES/JOINTS: No acute bony abnormality identified. LYMPH NODES: No evidence of diffuse lymphadenopathy. GALLBLADDER AND BILE DUCTS: Biliary ductal dilatation, which may be related to the post cholecystectomy state. No radiopaque common bile duct stones are visualized. Recommend correlation with LFTs as clinically indicated. KIDNEYS AND URETERS: Low density lesions in the kidneys bilaterally, most likely representing cysts. IMPRESSION: - No evidence of pulmonary embolism or other significant acute abnormality in the chest. - Incidental thyroid nodule. See above. - See above for remaining findings.
[2017-02-21] MEDS ORDERED: Iron Sucrose 100 mg/5 ml Inj IVP ONE (23:24)
--- NOTE | 2017-02-21 23:49 | PN ---
DATE: 02/21/2017 REFERRING PHYSICIAN: Dr. He. SUBJECTIVE: She is out of bed to chair and night was unremarkable, status ____. The patient had a t emperature 100.7. No headaches, no rhinitis, no cough, no nausea, no vomiting. Still has some left hip discomfort and constipated. OBJECTIVE: GENERAL: No acute distress. VITAL SIGNS: Temp is 100, heart rate is 103, respiratory rate is 20, blood pressure 145/57, pulse ox 100% on room air. HEENT: Moist mucous membranes. Crowded airway. NECK: Supple. No JVD. LUNGS: Have a fair airflow with few rhonchi. HEART: S1, S2. ABDOMEN: Soft, nontender, nondistended. EXTREMITIES: There is no edema. Has left hip tenderness. NEUROLOGIC: Awake, alert, follows simple commands. MEDICATIONS: She is on aspirin 81 mg daily, colchicine 0.6 mg daily, Cozaar 100 mg daily, Dilaudid 0 .5 mg every 4 hours p.r.n., Lasix 40 mg daily, Lipitor 20 mg daily, MiraLax 17 grams twice a day, mor phine 4 mg every 4 hours p.r.n., Neurontin 300 mg 3 times a day, Percocet 5/325 one tab every 4 hours p.r.n., potassium 10 mEq daily, Protonix 40 mg daily, Tylenol p.r.n. basis, allopurinol 100 mg daily . LABORATORY DATA: Shows hemoglobin 11.2, hematocrit 32.1, WBC 16.9, platelet count is 129. Sodium 13 8, potassium 4.0, chloride 102, bicarbonate 27, BUN 24, creatinine 1.1, glucose 110, calcium is 8.0. Iron is 17, ferritin 406, AST 53, ALT 83, alkaline phosphatase is 99, B12 is 389, folate is 9.6. IMPRESSION AND PLAN: Status post fall with left hip fracture requiring replacement with a drop of he moglobin requiring transfusion, sleep apnea syndrome, coronary artery disease, hypertension, hyperlip idemia. Anemia workup otherwise unremarkable. Sleep apnea precaution. Keep head at 45 degrees. Ca reful with sedation. May give MiraLax 1 packet twice a day, suppository p.r.n. basis. Fall pr ecautions. Continue therapy. Thank you and will follow with you. Marquise Bourne MD cc: [id number] TT: 02/21/2017 23:48:40 Confirmation # [id number] Dictation # [id number] mn
[2017-02-22] MEDS: Morphine 4 mg/ml ISec IVP PRN (02:24)
[2017-02-22] MEDS: Pantoprazole 40 mg EC Tab PO SCH (05:31)
[2017-02-22 07:49] LABS: HEMATOCRIT 33.4 % (36.0-48.0); MEAN CELL VOLUME 85.9 fL (80.0-105.0); MEAN CORPUSCULAR HEMOGLOBIN 29.6 pg (25.0-35.0); MEAN CORPUSCULAR HGB CONC 34.4 g/dl (31.0-37.0); MEAN PLATELET VOLUME 10.2 fl (7.0-11.0); WHITE BLOOD COUNT 12.5 10^3/ul (4.5-11.0)
[2017-02-22 08:04] LABS: ALB/GLOB RATIO 1.1 (1.1-1.8); BILIRUBIN,TOTAL 1.2 mg/dL (0.2-1.3); CALCIUM 8.5 mg/dL (8.4-10.5); POTASSIUM 4.3 mmol/L (3.6-5.0); TOTAL PROTEIN 6.5 g/dL (5.8-8.3)
[2017-02-22] MEDS: Oxycodone/Acetaminophen 5/325 mg Tab PO PRN (08:05)
[2017-02-22] MEDS: POLYETHYLENE GLYCOL 3350 17 GM/Dose PACKET PO SCH ×2 (09:27→17:17)
[2017-02-22] MEDS: Calcium-Vit D 250 mg-125 Units Tab UD PO SCH (09:28)
[2017-02-22] MEDS: Non Formulary Medication (Potassium Chloride [Klor-Con Sprinkle] 10 MEQ) PO SCH (09:29)
--- NOTE | 2017-02-22 09:56 | PN ---
DATE: 02/21/2017 SUBJECTIVE: The patient was seen and examined on the bedside. Daughter was standing on the bedside also. Looks comfortable. No nausea, vomiting, or diarrhea. Got blood transfusion after dropping H and H. No obvious source of bleeding was noted. The wound looks okay. No headache, no dizziness. No hematuria or hematochezia. No fever, no chills. PHYSICAL EXAMINATION: VITAL SIGNS: Temperature 100.0, pulse 103, blood pressure 145/67, respiratory rate 18. HEENT: Head normocephalic, atraumatic. Eyes: PERRLA. Extraocular muscles intact. Conjunctivae pink. Eyelids unremarkable. Nose patent. Mucous membranes moist. NECK: Supple. No carotid bruit, JVD or thyromegaly. CHEST: Bilaterally symmetrical. HEART: S1, S2 positive. LUNGS: Clear to auscultation. ABDOMEN: Soft. Bowel sounds present. No organomegaly. EXTREMITIES: No edema, no cyanosis. NEUROLOGIC: The patient is awake, alert, moving all 4 extremities. No focal deficits. MEDICATIONS: Aspirin, colchicine, Coreg, Dilaudid, Lasix, Lipitor, MiraLax, morphine, Neurontin, Percocet, potassium, Protonix, Tylenol, allopurinol. LABORATORY DATA: White blood cell is 15.9, hemoglobin 11.2, hematocrit 32.1, and platelets 129. Sodium 138, potassium 4.0, BUN 24, creatinine 1.1, calcium 8.0. AST 53, ALT 83, trending down. Urine has blood and leukocyte esterase. ASSESSMENT AND PLAN: The patient is an 81-year-old lady with leukocytosis, anemia. On admission, hemoglobin was 12, dropped to 7.7. Now it is back to 11.2, increased BUN, hyperglycemia, hypocalcemia, iron deficiency, abnormal liver function test, but trending down, hematuria, urinary tract infection, status post fall with left hip fracture requiring hip replacement. Procedure was done Dr. Suárez. Maybe component of sleep apnea syndrome, coronary artery disease, hypertension, hypercholesterolemia, drop of hemoglobin, typed and crossmatched, got blood transfusion. We replaced calcium and iron. Follow up hemoglobin and hematocrit. Sequential compression device to lower extremity. Fall precautions. Appreciated Dr. Bourne's input. Seen by Dr. Suárez as per orthopedic. Pain is much less. Wound is dry, looks healing well. Today went for CAT scan, of the chest. No evidence of pulmonary embolism or other significant acute abnormality in the chest. The patient had thyroid nodules and we will do thyroid ultrasound. Hypercholesterolemia. The patient had echocardiography done, showed ejection fraction of 55%. Dr. Sahni did addendum in his progress notes. According to him, it looks like the patient has severe pulmonary hypertension. Echo was done that shows pulmonary artery pressure of 101. Need to rule out acute pulmonary embolism, but patient went for CAT scan. because of drop of hemoglobin, he wants to hold Coumadin and the patient can be started on Lovenox . If CAT scan negative, Dr. Sahni wants to start Revatio. We will discuss with Dr. Bourne and Dr. Sahni. Now today, the patient has fever. Temperature maximum is 100. We w9ill call infectious disease consult also. Gastrointestinal and deep venous thrombosis prophylaxis. Repeat labs. We will follow up. Dennise He MD cc: [id number] TT: 02/22/2017 09:55:50 Confirmation # [id number] Dictation # [id number] gogo [email or web address]
--- NOTE | 2017-02-22 11:55 | PN ---
DATE: 02/22/2017 REASON FOR CONSULTATION: Preoperative evaluation, postop followup for fractured hip, status post ope n reduction internal fixation, severe pulmonary hypertension. BRIEF CLINICAL HISTORY: This is an 81-year-old female with past medical history significant for eric nary artery disease, status post PTCA 2010 when patient was admitted with angina. This time, patient admitted after a fall and fracture of left hip requiring open reduction and internal fixation, statu s post open reduction internal fixation done. Yesterday, the patient underwent echo that shows signi ficant pulmonary hypertension. PA pressure was 101. The patient was sent for stat CT angio to rule out PE which was negative. PHYSICAL EXAMINATION: VITAL SIGNS: Temperature afebrile, heart rate 92, blood pressure 130/62. HEENT: PERRLA. Extraocular muscles intact. NECK: Supple. No carotid bruits. No thyromegaly. CHEST: Clear to auscultation. HEART: S1, S2 regular. ABDOMEN: Soft. EXTREMITIES: Clubbing and cyanosis negative. LABORATORY DATA: Blood workup as follows: WBC 12.5, hemoglobin 11.5, hematocrit 33.4, platelet coun t 166. Chemistry shows sodium 130, potassium 4.3, chloride 90, carbon dioxide 20, anion gap of 14, B UN 28, creatinine 1.2, total bilirubin 1.2, AST 96, ALT 74, alkaline phosphatase 154. Total protein 6.5, albumin , albumin/globulin ratio 1.1. IMPRESSION AND PLAN: Severe pulmonary hypertension, PA pressure 101, severe tricuspid regurgitation, ejection fraction 55%, mild mitral regurgitation, trace to mild mitral regurgitation, trace mild aort ic regurgitation. The patient had a stress test last year that was normal. Status post fall, status post open reduction and internal fixation, history of coronary artery disease, status post percutane ous transluminal coronary angioplasty. CT angio was negative for pulmonary embolism. The patient nba pped hemoglobin, now H and H is stable. Will restart Coumadin to prevent deep venous thrombosis. Wi ll discuss with pulmonary for patient to start Revatio because of severe pulmonary hypertension. We will follow with you. Thank you, Dr. He, for providing the opportunity in taking care of the patient. Now will start at least Lovenox, DVT prophylaxis, as H and H is stable. We will discuss with pulmonary since starting sildenafil and Revatio. Marquise Sahni MD cc: [id number] TT: 02/22/2017 11:54:23 Confirmation # [id number] Dictation # [id number] rn
[2017-02-22] MEDS: Enoxaparin 30 mg Syringe SC SCH (12:02)
--- NOTE | 2017-02-22 13:16 | US ---
HISTORY: Thyroid nodule TECHNIQUE: Grayscale imaging was performed. COMPARISON: CT chest from 02/21/2017 FINDINGS: RIGHT LOBE: Measures 4.3 x 1.4 x 1.0 cm. Normal echotexture and flow. Nodules: There are 4 subcentimeter nodules, the largest in the upper pole measures 5 mm. LEFT LOBE: Measures 3.5 x 1.6 x 1.1 cm. Normal echotexture and flow. Nodules: There is a 17 x 11 x 13 mm complex nodule in the upper pole. Also noted is a 4 x 6 x 3 mm colloid nodule in the lower pole. ISTHMUS: Measures 0.2 cm. Normal echotexture and flow. Nodules: There is a 3 mm nodule in the isthmus. OTHER FINDINGS: None . IMPRESSION: Multinodular thyroid gland with a dominant 17 mm complex nodule in the left upper pole.
[2017-02-22] MEDS ORDERED: Sildenafil 20 MG TAB PO SCH (18:00)
--- NOTE | 2017-02-22 21:13 | PN ---
DATE: 02/22/2017 SUBJECTIVE: The patient was seen and examined on the bedside, looks comfortable. Last night she had episode of fever. electronic lab technician is on the bedside. She is almost ready to get physical therapy. No nausea, vomiting, or diarrhea. No hematuria or hematochezia. No headache, no dizziness. Pain is tolerable as per patient. PHYSICAL EXAMINATION: VITAL SIGNS: Temperature is 98.6, T-max is 100.0, pulse is 100, blood pressure 136/86, respiratory rate is 16. HEENT: Head normocephalic, atraumatic. Eyes: PERRLA. Extraocular muscles intact. Conjunctivae pink. Eyelids unremarkable. Nose patent. Mucous membranes moist. NECK: Supple. No carotid bruit, JVD or thyromegaly. CHEST: Bilaterally symmetrical. HEART: S1, S2 positive. LUNGS: Clear to auscultation. ABDOMEN: Soft. Bowel sounds present. No organomegaly. EXTREMITIES: No edema, no cyanosis. NEUROLOGIC: The patient is awake, alert. Cranial nerves II-XII are grossly intact. MEDICATIONS: Aspirin, colchicine, Cozaar, Dilaudid, Lasix, Lipitor, Lovenox, MiraLax, Neurontin, Os-Surinder, potassium, Protonix, Revatio, Tylenol, B12, allopurinol. LABORATORY DATA: White blood cells 12.5. On admission it was 15.2. Hemoglobin 11.7, hematocrit 33.4, platelets 156. Sodium 138, potassium 4.3, BUN 20, creatinine 1.2, AST 96, ALT 74, alkaline phosphatase 154. ASSESSMENT AND PLAN: The patient is an 81-year-old female with leukocytosis, anemia, increased BUN, abnormal liver function test, hematuria, urinary tract infection, has severe pulmonary hypertension, PA pressure 101, severe tricuspid regurgitation, ejection fraction 55%, mild mitral regurgitation, mild regurgitation. The patient's stress test done last year was normal. Status post fall, status post open reduction and internal fixation, history of coronary artery disease, status post percutaneous transluminal coronary artery angioplasty. CAT scan is negative for pulmonary embolism. The patient dropped hemoglobin and now H and H is stable. Dr. Sahni started Coumadin for DVT prophylaxis. Started patient on Revatio because of severe pulmonary hypertension. The patient went for thyroid ultrasound. Multinodular thyroid gland with dominant complex nodule in the left upper lobe. Will call endocrinology consult. Dr. Suárez did the procedure. Dr. Bourne and agricultural agent cleared the patient for surgery. Out of bed, physical therapy. Getting Dilaudid for pain and Lipitor for hypercholesterolemia, MiraLax for constipation, Protonix for gastrointestinal prophylaxis, Revatio for pulmonary hypertension, allopurinol for gouty arthritis. We will follow up. Dennise He MD cc: [id number] TT: 02/22/2017 21:13:05 Confirmation # [id number] Dictation # [id number] anita MURO
--- NOTE | 2017-02-22 21:36 | PN ---
DATE: 02/22/2017 REFERRING PHYSICIAN: Dr. He. SUBJECTIVELY: She is lying in the reclining chair. Her day was unremarkable. No headache, no rhini tis, no nausea, no vomiting, no diarrhea. Has some hip discomfort, but able to walk a few steps with the therapy. OBJECTIVELY: In no acute distress. Temp is 98, heart is 100, respiratory rate is 16, blood pressure 136/68, pulse ox 100% on room air. HENT: Moist mucous membranes. Crowded airway. Mallampati score is 4. NECK: Supple. No JVD. LUNGS: Have a fair airflow with few rhonchi. HEART: S1, S2. ABDOMEN: Soft, nontender, no organomegaly. EXTREMITIES: There is no edema. Left hip has mild tenderness on palpation. NEUROLOGICALLY: Awake, alert. Follows simple commands. MEDICATIONS: She is on aspirin 81 mg daily, colchicine 0.6 mg daily, Cozaar 100 mg daily, Dilaudid 0 .5 mg subQ q. 4 hours, Lasix 40 mg daily, Lipitor 20 mg daily, Lovenox 30 mg daily, MiraLax 17 g twic e a day, gabapentin 300 mg 3 times a day, vitamin D tablet daily, Protonix 40 mg daily, Revatio 20 mg twice a day, Tylenol p.r.n. basis, vitamin B12 as 1000 mcg daily, allopurinol 100 mg daily. LABORATORY DATA: Shows hemoglobin 11.5, hematocrit 33.4, WBC 12.5, platelet is 166. Sodium 138, pot assium 4.3, chloride 99, bicarbonate 29, BUN 28, creatinine 1.2, glucose 106, calcium is 8.5, iron is 17, TIBC 233, and ferritin is 406. AST 96, ALT 74, alk phos is 154, albumin is 3.3. Vitamin B12 is 389, folate is 9.6. Had a CAT scan of the chest done which shows no evidence of pulmonary embolism or other significant a cute abnormality in the chest. Incidentally, thyroid nodule was seen. IMPRESSION AND PLAN: Status post fall with hip fracture requiring replacement, drop of hemoglobin po stop requiring transfusion, may have a sleep apnea syndrome, coronary artery disease, hypertension, h yperlipidemia, severe pulmonary hypertension. This may be component of diastolic cardiac dysfunction . Revatio was started by cardiology. Will need attended sleep study as outpatient, rule out sleep apne a contribution to the pulmonary hypertension. Once improved she will need a right heart cath to assu re and its origin. Continue SCD. High risk for syncopal episode. I agree with acute inpatien t rehab. Thank you, and will follow with you. Marquise Bourne MD cc: [phone] TT: 02/22/2017 21:35:46 Confirmation # [id number] Dictation # [id number] jn
[2017-02-23] MEDS: Pantoprazole 40 mg EC Tab PO SCH (06:17)
--- NOTE | 2017-02-23 07:00 | CON ---
DATE: 02/22/2017 ROOM: 576. HISTORY OF PRESENT ILLNESS: This is an 81-year-old female with known history of hypertension and dys lipidemia and significant cardiac vasculopathy who presents here with recent accidental fall and sust ained a left hip fracture and underwent an open reduction and internal fixation of the left femoral b one as noted. She is being referred now for endocrine evaluation for an incidental finding of a left thyroid nodule by CAT scan. PAST MEDICAL HISTORY: History of coronary artery disease with a previous coronary stent placement, h istory of hypertensive cardiovascular disease and dyslipidemia, history of lumbar disk disease and as sociated radiculopathy with low back pain and also episodic lower extremity painful paresthesias. Sh cristin is currently using Neurontin medications as noted, history of gouty arthritis and has been on colch icine medications as maintenance. FAMILY HISTORY: Positive for diabetes and hypertension. SOCIAL HISTORY: The patient has a supportive family. No known substance use. REVIEW OF SYSTEMS: As mentioned above, admits to generalized body weakness with easy fatigability an d tiredness and suboptimal energy level. No chest pains or palpitations, but admits to occasional obed uts of shortness of breath, especially on exertion. Her oral intake has been variable and suboptimal with nausea, dyspepsia, and vague upper abdominal pain. PHYSICAL EXAMINATION: GENERAL: This is an average built female in no apparent distress. VITAL SIGNS: Blood pressure of 144/80, pulse of 70 beats per minute and regular, temperature 98, res pirations 20. Height is 5 feet, weight is 104 pounds. HEENT: Head normocephalic. Eyes anicteric with pink conjunctivae. Fundoscopy not possible at this time. Ears, nose and throat otherwise normal. NECK: Supple. Thyroid gland shows nodular thyromegaly with minute nodules palpable, but no cervical adenopathy noted. CARDIOPULMONARY: Adynamic precordium. S1, S2 is rapid and regular. LUNGS: Clear to auscultation. ABDOMEN: Flat, soft with positive bowel sounds. EXTREMITIES: No peripheral edema. Pulses are +2 bilaterally. LABORATORY DATA: The chemistries showed a BUN of 22, sodium 140, potassium 4.1, chloride 105, CO2 22 , glucose 166 and creatinine 1.4. Calcium level has ranged from 7.9 to 8.2 with an albumin level of 3.1 and normal corrected calcium as noted. Her initial thyroid study showed a TSH of 1.01. ASSESSMENT: This is an 81-year-old female with a left hip fracture and underwent an open reduction a nd internal fixation of the left femoral bone as she sustained an intertrochanteric comminuted fractu re following an accidental fall at home and is now being referred for endocrine evaluation because of an incidental finding of a left thyroid nodule. She remains clinically and biochemically euthyroid at this time as per the initial evaluation. However, she has a palpable nodular goiter with minute n odules bilaterally as noted. She is biochemically euthyroid from the initial lab testing as undertak en. PLAN OF MANAGEMENT: As discussed with the patient and the staff, will do a comprehensive thyroid hor monal profile with a thyroid peroxidase antibody and a thyroglobulin panel to confirm and/or exclude any underlying thyroid autoimmunity, especially in the light of a multinodular goiter. However, will hold off any kind of levothyroxine suppressive therapy as she remains clinically and biochemically e uthyroid at this time. Will obtain serial chemistries and supplement accordingly as needed. Will al so do a parathyroid hormone intact level and a 25-hydroxy vitamin D level as ordered. Will follow. Lucille Baltazar MD cc: [id number] TT: 02/23/2017 06:59:44 Confirmation # [id number] Dictation # [id number] filemon
[2017-02-23 08:05] LABS: ALB/GLOB RATIO 1.1 (1.1-1.8); CALCIUM 8.3 mg/dL (8.4-10.5); POTASSIUM 4.2 mmol/L (3.6-5.0)
[2017-02-23 08:32] LABS: T4 7.5 ug/dL (5.5-11.0)
[2017-02-23 08:46] LABS: THYROID STIMULATING HORMONE 1.26 mIU/mL (0.46-4.68)
[2017-02-23] MEDS: Calcium-Vit D 250 mg-125 Units Tab UD PO SCH (09:21)
[2017-02-23] MEDS: Sildenafil 20 MG TAB PO SCH ×3 (09:22→17:22)
[2017-02-23] MEDS: POLYETHYLENE GLYCOL 3350 17 GM/Dose PACKET PO SCH ×2 (09:22→17:22)
[2017-02-23] MEDS: Enoxaparin 30 mg Syringe SC SCH (09:22)
[2017-02-23] MEDS: Non Formulary Medication (Potassium Chloride [Klor-Con Sprinkle] 10 MEQ) PO SCH (09:22)
--- NOTE | 2017-02-23 09:45 | PN ---
DATE: 02/23/2017 REASON FOR CONSULTATION AND FOLLOWUP: Preop evaluation, postop followup for fracture, status post op en internal fixation, severe pulmonary hypertension. BRIEF CLINICAL HISTORY: An 81-year-old female with a past medical history significant for coronary a rtery disease, status post PTCA 2010 when the patient was admitted with angina. This time, patient a dmitted after a fall, sustained fracture of the left hip requiring OR internal fixation. The patient underwent OR. Echo shows significantly elevated pulmonary pressures consistent with severe pulmonar y hypertension, PA pressure was 101. The patient was sent for stat CT angio to rule out PE, which wa s negative. The patient was started on Revatio. PHYSICAL EXAMINATION: VITAL SIGNS: Temperature afebrile, heart rate , blood pressure 136/68. HEENT: PERRLA. Extraocular muscles intact. NECK: Supple. No carotid bruits. No thyromegaly. CHEST: Clear to auscultation. HEART: S1, S2 regular. ABDOMEN: Soft. EXTREMITIES: Clubbing, cyanosis negative. BLOOD WORKUP: WBC 12.5, hemoglobin 11. , hematocrit 33.4, platelet count 166. Chemistry: Sodiu m 135, potassium 4.2, chloride 99, carbon dioxide , anion gap of 11, BUN 33, creatinine 1.4. IMPRESSION: Status post fall, status post fracture hip, status post open reduction internal fixation , coronary artery disease, status post percutaneous transluminal coronary angioplasty 2010. Repeat e cho at this time shows severe pulmonary hypertension, pulmonary artery pressure 101, severe tricuspid regurgitation, ejection fraction 55%, preserved left ventricular function, mild mitral regurgitation , trace to mild mitral regurgitation, trace to mild aortic regurgitation. The patient had a stress t est last year that was normal. CT angio was negative for embolism. H and H dropped, but now is main taining. Status post open reduction internal fixation for the left hip. RECOMMENDATION: Continue rehabilitation. We will start Lovenox to prevent deep venous thrombosis as prophylaxis. Yesterday, in my note, I put we will start Coumadin, is a typo dictation. We will sta rt Lovenox, was on hold because of drop in H and H. Now, Lovenox is started. Started Revatio b.i.d. dose and see how the patient tolerates. If the blood pressure is tolerated, we can increase up to t he maximum dose of t.i.d. Continue losartan, continue aspirin, continue Lasix p.o., continue atorvas tatin and if blood pressure is tolerated, will increase Revatio to t.i.d. from tomorrow. Thank you, Dr. He, for providing us the opportunity in taking care of the patient. Marquise Sahni MD cc: [id number] TT: 02/23/2017 09:45:36 Confirmation # [id number] Dictation # [id number] en
--- NOTE | 2017-02-23 14:00 | PN ---
DATE: 02/23/2017 REFERRING PHYSICIAN: Dr. He SUBJECTIVE: The patient is out of bed to chair. Family is at bedside. Night was unremarkable. Doi ng well in therapy. Has a mild left hip pain and ecchymotic area with swelling. No nausea, no vomit ing, no diarrhea. OBJECTIVE: GENERAL: No acute distress. VITAL SIGNS: Temp is 98, heart rate is 84, respiratory rate is 18, blood pressure 124/54, pulse ox 9 6% on room air. HEENT: Moist mucous membrane. Crowded airway. NECK: Supple. No JVD. LUNGS: Has a fair airflow with few rhonchi. HEART: S1 and S2. ABDOMEN: Soft, nontender. No organomegaly. EXTREMITIES: Has a left hip swelling, ecchymotic area, tender to touch. NEUROLOGIC: Awake, alert, follows simple commands. MEDICATIONS: She is on aspirin 81 mg daily, colchicine 0.6 mg daily, Cozaar 100 mg daily, Lasix 40 m g daily, Lipitor 20 mg daily, Lovenox 30 mg subQ daily, MiraLax 17 grams twice a day, Neurontin 300 m g 3 times a day, vitamin D and calcium 1 tablet daily, Protonix 40 mg daily, Revatio 20 mg 3 times a day, Tylenol p.r.n. basis, vitamin B12 1000 mcg daily, allopurinol 100 mg daily. LABORATORY DATA: Shows sodium ____, potassium 4.2, chloride 99, bicarbonate 29, BUN 33, creatinine 1 .4, glucose 107. Hemoglobin A1c 5.8. Calcium 8.3, AST 44, ALT 51, alk phos is 126, albumin 3.1. Vi tamin B12 is 35. Thyroxine T4 is 7.5. TSH is 1.26. IMPRESSION AND PLAN: Status post fall with hip fracture requiring replacement, drop of hemoglobin re quiring transfusion, may have sleep apnea syndrome, coronary artery disease, hypertension, hyperlipid emia, severe pulmonary hypertension, thyroid nodule, may have a component of cardiac diastolic dysfun ction. Pulmonary point of view, doing well. We will recommend sleep study as outpatient. Fall prec aution. Being followed by cardiology and endocrinology. Thank you and we will follow with you. Marquise Bourne MD cc: [phone] TT: 02/23/2017 14:00:14 Confirmation # [id number] Dictation # [id number] en
--- NOTE | 2017-02-23 16:18 | PN ---
DATE: 02/23/2017 ROOM: 576 This is an 81-year-old female who was admitted here with a left hip fracture and underwent an open re duction and internal fixation procedure and is now also being followed closely for metabolic manageme nt. She remains clinically euthyroid and biochemically has had near optimal thyroid levels as noted. Her latest chemistries showed a BUN of 33, sodium 135, potassium 4.2, chloride 99, CO2 of 29, glucose 107, and creatinine 1.4. She has slightly elevated liver transaminases as noted. Her latest thyroi d study showed a T4 of 7.5 with a TSH of 1.26, and a vitamin D level of 35.2. ASSESSMENT: This is an 81-year-old female with recent left hip fracture and underwent an open reduct ion and internal fixation procedure, who is also being followed closely for metabolic management. Nam amaral had an incidental finding of a nodular goiter with small nodules seen by CAT scan, which was confir med by thyroid ultrasound as noted. She remains clinically euthyroid and biochemically. The thyroid study showed a T4 of 7.5 with a TSH of 1.26, which is equivalent to being biochemically euthyroid at this time. With the presence of an underlying very small multinodular goiter with no overt dominant palpable nodules, there is no indication at this time for any kind of thyroid pharmacotherapy. Will obtain serial thyroid studies and observe the fluctuations thereof. But at this time, she remains b iochemically euthyroid with no indication for levothyroxine suppressive therapy. Thyroid antibodies were sent out which will confirm and/or negate the presence of thyroid autoimmunity. Will follow and advise accordingly. Lucille Baltazar MD cc: [id number] TT: 02/23/2017 16:18:27 Confirmation # [id number] Dictation # [id number] mn
[2017-02-23 18:09] VITALS: BP 117/52; PULSE 90; RESP 20; TEMP 98.4; O2SAT 99
--- NOTE | 2017-02-23 22:49 | CP.PCM.CON ---
History of Present Illness - History of Present Illness History of Present Illness: Infectious Disease Consultation: February 23, 2017 81 yo female with extensive medical history presenting with accidental fall and a sustained left hip fracture. Initially the patient had leukocytosis that has improved over the course of her hospitalization. She has been afebrile although came close to being febrile in the past 36-60 hours with a temperature of 100.0 F. No other symptomes given. There is also an incedental finding of a left thyroid nodule seen on CT scan. For the most part, patient appears comfortable. PMHx: CAD, hypertension, dyslipidemia, low back pain, radiculopathy, gout PSHx: Left hip surgery during this hospitalization. Allergies: NKDA Social Hx: No tobacco, EtOH, or illicit drug use. Medications : As per MAR Family Hx: Diabetes and Hypertension multiple members ROS: No fevers, chills, nausea, vomiting, diarrhea, headaches, dizziness, chest pain , abdominal pain, melena, hematuria, hematemesis, hematochezia, depression, anxiety, depression, vision loss, hearing loss, loss of hearing Past Patient History - Infectious Disease Hx of Infectious Diseases: None - Past Social History Smoking Status: Never Smoked - CARDIAC Hx Cardiac Disorders: Yes Hx Hypertension: Yes - HEENT Hx HEENT Problems: Yes Hx Cataracts: Yes (Bilateral) - HEMATOLOGICAL/ONCOLOGICAL Hx Blood Transfusions: No Hx Blood Transfusion Reaction: No - MUSCULOSKELETAL/RHEUMATOLOGICAL Hx Arthritis: Yes - GENITOURINARY/GYNECOLOGICAL Hx Incontinence: Yes - PSYCHIATRIC Hx Substance Use: No - SURGICAL HISTORY Hx Surgeries: Yes - ANESTHESIA Hx Anesthesia Reactions: No Hx Malignant Hyperthermia: No Meds Allergies/Adverse Reactions: Allergies Allergy/AdvReac Type Severity Reaction Status Date / Time No Known Allergies Allergy Verified 02/17/17 23:42 Physical Exam - Constitutional Appears: Non-toxic, Chronically Ill - Head Exam Head Exam: ATRAUMATIC, NORMOCEPHALIC - Eye Exam Eye Exam: EOMI, PERRL Pupil Exam: NORMAL ACCOMODATION, PERRL - ENT Exam ENT Exam: Mucous Membranes Moist, Normal External Ear Exam, TM's Normal Bilaterally - Neck Exam Neck exam: Positive for: Full Rom, Normal Inspection - Respiratory Exam Respiratory Exam: Clear to Auscultation Bilateral, NORMAL BREATHING PATTERN. absent: Rales, Rhonchi, Wheezes - Cardiovascular Exam Cardiovascular Exam: REGULAR RHYTHM, RRR, +S1, +S2 - GI/Abdominal Exam GI & Abdominal Exam: Normal Bowel Sounds, Soft. absent: Distended, Tenderness - Extremities Exam Extremities exam: Negative for: joint swelling, pedal edema Additional comments: left hip repair. - Neurological Exam Neurological exam: Alert, CN II-XII Intact - Psychiatric Exam Psychiatric exam: Normal Affect, Normal Mood - Skin Skin Exam: Intact, Normal Color Results - Vital Signs Recent Vital Signs: Last Vital Signs Temp 98.4 F 02/23/17 16:00 Pulse 90 02/23/17 16:00 Resp 20 02/23/17 16:00 BP 117/52 L 02/23/17 16:00 Pulse Ox 99 02/23/17 16:00 - Labs Result Diagrams: 02/22/17 06:45 02/23/17 07:15 Labs: Laboratory Results - last 24 hr 02/23/17 07:15 Sodium 135 Potassium 4.2 Chloride 99 Carbon Dioxide 29 Anion Gap 11 BUN 33 H Creatinine 1.4 Est GFR ( Amer) 44 Est GFR (Non-Af Amer) 36 Random Glucose 107 Hemoglobin A1c 5.8 Calcium 8.3 L Total Bilirubin 1.0 AST 44 H ALT 51 Alkaline Phosphatase 126 Total Protein 6.0 Albumin 3.1 Globulin 2.9 Albumin/Globulin Ratio 1.1 Triglycerides 132 Cholesterol 119 L LDL Cholesterol Direct 64 HDL Cholesterol 29 25-OH Vitamin D Total 35.2 Thyroxine (T4) 7.5 TSH 3rd Generation 1.26 Assessment & Plan - Assessment and Plan (Free Text) Assessment: Improving leukocytosis. No fevers. Currently on no antibiotics. Patient appears to be stable. Supportive care. Initial leukocytosis may have been reactive to sugery and fall. No need to start antibiotics at this time. Would monitor for now. Thank you for allowing me to participate in the care of the patient, we will follow with you.
--- NOTE | 2017-02-24 09:22 | DS ---
CHIEF COMPLAINT: Fall, leg pain. HISTORY OF PRESENT ILLNESS: The patient is an 81-year-old, my private patient, with history of hypertension, hypercholesterolemia. Came to [facility] after a fall and left leg pain. According to the patient, she just woke up in the middle of the night to go to the bathroom and then she had a fall and with that, she had pain in the left leg. Denies loss of consciousness. No change in the mental status. The patient was admitted. CAT scan of the head done, x- ray of the _done, x-ray of the hip and pelvis done, showed intertrochanteric fracture of the left hip, mildly displaced. Orthopedic consult called with Dr. Schmitt. He was not available. Then, appreciated Dr. Suárez, who did the surgery. The patient was doing better. Two nights ago, she has fever. We observed her. CAT scan of the chest was done. Thyroid ultrasound was done. Seen by Lucille Baltazar, metal cut off saw operator. For fever, patient was seen by Dr. Blackburn. Incidental finding of nodular goiter with small nodule seen by CAT scan, which was confirmed by thyroid ultrasound. The patient clinically remained euthyroid and biochemically. According to Dr. Lucille Baltazar, there is no indication for any kind of thyroid pharmacotherapy. We will obtain serial thyroid studies and have the fluctuating careful. Thyroid antibodies were sent out, which will be confirmed and/or negate the presence of thyroid autoantibodies. We discharged the patient for subacute rehab. Will get physical therapy. Will follow up and especially will follow up with Dr. Suárez for weightbearing. PAST MEDICAL HISTORY: History of [place], coronary artery disease, hypertension, stroke, hypercholesterolemia. FAMILY HISTORY: Father and mother noncontributory. HABITS: No smoking, no drugs, no ethanol. ALLERGIES: The patient is not allergic with any medications. Medications reviewed by me. REVIEW OF SYSTEMS: The patient seen and examined on the bedside, looks comfortable. No nausea, vomiting, diarrhea. No hematuria, no hematochezia. No headache, no dizziness. PHYSICAL EXAMINATION: VITAL SIGNS: Temperature 98, heart rate 84, respiratory rate 18, and blood pressure 124/54, pulse oximetry 100 % on room air. HEENT: Head normocephalic, atraumatic. Eyes: PERRLA. Extraocular muscles intact. Conjunctivae pink. Eyelids unremarkable. Nose patent. Mucous membranes moist. NECK: Supple. No carotid bruit, no JVD, no thyromegaly. CHEST: Bilaterally symmetrical. HEART: S1, S2 positive. LUNGS: Has fair airflow with few rhonchi. ABDOMEN: Soft, nontender. No organomegaly. EXTREMITIES: The patient has left hip swelling, ecchymotic areas and tender to touch. NEUROLOGIC: Awake, alert, follows simple commands. MEDICATIONS: Aspirin, colchicine, Cozaar, Lasix, Lipitor, Lovenox, MiraLax, Neurontin, vitamin D, Protonix, Revatio, Tylenol, B12, allopurinol. LABORATORIES: Potassium 4.2, BUN 33, creatinine 1.4, glucose 107. Hemoglobin A1c 5.8. TSH 1.26. B12 is 35. ASSESSMENT AND PLAN: The patient is an 81-year-old lady, status post fall with hip fracture requiring replacement, drop of hemoglobin requiring blood transfusion, sleep apnea syndrome, coronary artery disease, history of stroke, hypertension, hypercholesterolemia, severe pulmonary hypertension getting Revatio, thyroid nodules, reviewed by Dr. Lucille Baltazar. The patient is doing better. Fall precautions. Transferred to [facility] for physical therapy and for further treatment. The patient was seen by Lucille Baltazar. According to her, patient is stable, we do not need any workup right now, but we have to keep followup. Even patient has history of temperature of 100.0, but patient is completely comfortable, improving leukocytosis. Supportive care. Initial leukocytosis may be reactive to surgery and fall. No need to start antibiotics. We will monitor for followup. Gastrointestinal and deep venous thrombosis prophylaxis. We will repeat labs. We will follow up. Dennise He MD cc: [id number] TT: 02/24/2017 09:22:19 en MTDD
== END 2017-02-23 21:17 | DRG 481 ==
LOC: ED 23:26 → ERH 02-18 02:30 → 5RSO 02-18 03:54
PROVIDERS: ADMIT Internal Medicine; ATTEND Internal Medicine
PROC: 0HQGXZZ Repair Left Hand Skin, External Approach (ICD-10-PCS; 2017-02-18)
PROC: 0QS704Z Reposition Left Upper Femur with Internal Fixation Device, Open Approach (ICD-10-PCS; principal; 2017-02-19 09:00)
PROC: 30233N1 Transfusion of Nonautologous Red Blood Cells into Peripheral Vein, Percutaneous Approach (ICD-10-PCS; 2017-02-20)
DX: S72.142A Displaced intertrochanteric fracture of left femur, initial encounter for closed fracture (principal); N39.0 Urinary tract infection, site not specified; S61.412A Laceration without foreign body of left hand, initial encounter; E11.22 Type 2 diabetes mellitus with diabetic chronic kidney disease; I13.10 Hypertensive heart and chronic kidney disease without heart failure, with stage 1 through stage 4 chronic kidney disease, or unspecified chronic kidney disease; I27.2 Other secondary pulmonary hypertension; I08.3 Combined rheumatic disorders of mitral, aortic and tricuspid valves; E83.51 Hypocalcemia; E04.2 Nontoxic multinodular goiter; I25.119 Atherosclerotic heart disease of native coronary artery with unspecified angina pectoris; E78.5 Hyperlipidemia, unspecified; M51.16 Intervertebral disc disorders with radiculopathy, lumbar region; M10.9 Gout, unspecified; G47.30 Sleep apnea, unspecified; R31.9 Hematuria, unspecified; D50.9 Iron deficiency anemia, unspecified; E78.00 Pure hypercholesterolemia, unspecified; K59.00 Constipation, unspecified; N18.2 Chronic kidney disease, stage 2 (mild); W01.0XXA Fall on same level from slipping, tripping and stumbling without subsequent striking against object, initial encounter; Y93.01 Activity, walking, marching and hiking; Y92.032 Bedroom in apartment as the place of occurrence of the external cause; I25.2 Old myocardial infarction; Z95.5 Presence of coronary angioplasty implant and graft; Q00-Q99 Congenital malformations, deformations and chromosomal abnormalities; Z79.82 Long term (current) use of aspirin